=== PATIENT | male | born 1990 | race Hispanic/Latino ===

== ENCOUNTER 2025-05-25 12:01 | Emergency (ER) | payer MEDICAID, SELFPAY ==
[2025-05-25 12:06] VITALS: BP 136/91
--- NOTE | 2025-05-25 13:13 | ED.GENMED ---
History of Present Illness
General
Chief Complaint: Musculo-Skeletal Complaint
Source: patient
Exam Limitations: none
Time Seen by Provider: 05/25/25 13:04
Nursing documentation reviewed up to this point in time: agreed with
History of Present Illness
History of Present Illness:
Patient presents to ED secondary to persistent right hand pain on the palmar aspect below 3rd and 4th finger x 3 days. Patient states that his symptoms started after he was doing pull-ups at the gym. Since then, patient has had persistent pain.
Denies additional injury. Denies loss of sensation or weakness. Denies open wound. Patient works as a nolan. Denies previous history of similar symptoms.
Past History
Past History
ED Past Medical History: None
ED Past Surgical History: Other (Lipoma removal)
Social History
Tobacco: Smoker
Alcohol: Occasional
Drug: None
Personal:
Living: with family
Employment: Employed
Review of Systems
Review of Systems
Allergies reviewed?: Yes
All Other Systems: ROS reviewed and negative except as documented in HPI and ROS
Constitutional: Reports no symptoms
Musculoskeletal: Reports other (hand pain)
Skin: Reports no symptoms
Neurological: Reports no symptoms; Denies weakness or numbness
Phy Exam
Physical Exam
Physical Exam:
Physical Exam
General: mild distress, not acutely ill. afebrile
Head: nc/at. eomi
Neck: supple. normal range of motion
Neuro: alert and oriented x 3. no focal sensory/motor deficit
Skin: no rash
Psychiatric: well kept. interactive and cooperative
Extremities: right hand: focal tenderness to palpation at base of 3rd/4th phalanx, with minimal swelling without erythema/ecchymosis
Course
Orders/Labs/Results
Orders:
Orders
05/25/25 12:31
CR Hand - Right Min 3 Views Urgent
Comment:
Reason For Exam: Pain
Vital Signs
Initial and Last Documented VS:
Initial Vital Signs
Pulse Resp Pulse Ox
76 19 98
05/25/25 12:03 05/25/25 12:03 05/25/25 12:03
Last Documented Vital Signs
Temp Pulse Resp BP Pulse Ox
98.0 F 76 19 136/91 98
05/25/25 12:06 05/25/25 12:03 05/25/25 12:03 05/25/25 12:06 05/25/25 13:18
MDM/Problems Addressed
MDM/Problems Addressed:
X-ray report reviewed and discussed with patient.
History and exam consistent with likely transient pain secondary to localized inflammatory response from local trauma when he was doing pull-ups. Patient otherwise is neurovascularly intact. Patient will be splinted for immobilization, along with
recommendation to take NSAIDs and ice application. In addition, patient will be referred to hand surgeon outpatient consultation, if his symptoms persist. Patient expressed understanding at time of discharge
*Pulse Oximetry
SaO2: 98
Patient hypoxic: no
*Critical Care Note
Total Time (30-74mins, 75-104mins- exclusive of procedures): Not Applicable
ED Attending Note
-
Portions of this chart may have been created with voice recognition software.� Occasional wrong word or��sound alike� substitutions may have occurred due to the inherent limitations of voice recognition software.
Discharge Plan
Departure
Patient Disposition: Home (Routine Discharge)
Date of Disposition: 05/25/25
Time of Disposition: 13:29
Patient with high blood pressure during this ER visit?: Yes
Condition: Good
Discharge Problem:
Hand pain
Instructions: Hand pain
Prescriptions:
No Action
prochlorperazine maleate 10 MG tablet
10 mg PO Q8HPRN PRN (Reason: headache, nausea) Qty: 15 0RF
sulfamethoxazole-trimethoprim 1 TABLET tablet
1 tab PO BID Qty: 14 0RF
ibuprofen 400 mg tablet
400 mg PO Q6H PRN (Reason: Pain) Qty: 30 0RF
acetaminophen 500 mg tablet
500 mg PO Q6H PRN (Reason: Pain) Qty: 30 0RF
lidocaine 5 % adhesive patch,medicated
1 patch topical DAILY Qty: 15 0RF
cyclobenzaprine 5 mg tablet
5 mg PO TID PRN (Reason: muscle spasm) Qty: 10 0RF
Referrals:
Patricio Cuadra MD [Active, Orthopedics]
Activity Restrictions/Additional Instructions:
As discussed, please follow-up with hand surgeon with any further concerns.
Interventions
Interventions:
*General Assessment Last Done: 05/25/25 12:05
*Neglect/Abuse Screening Last Done: 05/25/25 12:05
*ED COVID-19 Vaccine History Last Done: 05/25/25 12:05
*ED Influenza Vaccine History Last Done: 05/25/25 12:05
*Risk Screen - Suicide (C-SSRS) Last Done: 05/25/25 12:05
*Nursing Disposition Last Done: 05/25/25 13:42
ED-Musculoskeletal Assessment Last Done: 05/25/25 12:34
Discharge Date and Time
Discharge Date/Time: 05/25/25 13:43
Print Language: FRISIAN
== END 2025-05-25 13:43 | disposition home or self-care (01) ==
LOC: EMR 12:01
PROVIDERS: EMERGENCY PHYSICIAN Emergency Medicine
DX: M79.641 Pain in right hand (principal); X58.XXXA Exposure to other specified factors, initial encounter; Y93.B2 Activity, push-ups, pull-ups, sit-ups; Y92.39 Other specified sports and athletic area as the place of occurrence of the external cause; R03.0 Elevated blood-pressure reading, without diagnosis of hypertension; F17.200 Nicotine dependence, unspecified, uncomplicated
CPT/HCPCS: 99283; 73130